=== PATIENT | male | born 1950 | race Hispanic/Latino ===

== ENCOUNTER 2016-11-12 07:28 | Day surgery (SDC) | payer MEDICARE ==
[2016-11-12 10:09] VITALS: BMI 33.3
[2016-11-12] MEDS ORDERED: Midazolam 2 MG/2 ML VIAL ONE (10:13)
[2016-11-12] MEDS ORDERED: Propofol 10 mg/ml Inj (20 ML) ONE ×2 (10:13→10:32)
[2016-11-12 11:20] VITALS: TEMP 97.1
[2016-11-12 11:48] VITALS: RESP 17
[2016-11-12 12:09] VITALS: BP 121/77; PULSE 75; O2SAT 98
== END 2016-11-12 12:06 | disposition home or self-care (01) ==
LOC: C.ENDO 07:28
PROVIDERS: ATTEND Internal Medicine Gastroenterology
DX: D12.0 Benign neoplasm of cecum (principal); D12.4 Benign neoplasm of descending colon; D12.3 Benign neoplasm of transverse colon; K64.8 Other hemorrhoids
CPT/HCPCS: 45388; 88305; J2250; J2704